=== PATIENT | male | born 1965 | race Two or more races ===

== ENCOUNTER 2017-10-17 14:10 | Outpatient (CLI) | payer OTHER | END 2017-10-17 15:00 | disposition home or self-care (01) | LOC: MRI 14:10 | DX: G89.29 Other chronic pain (principal); G61.89 Other inflammatory polyneuropathies | CPT/HCPCS: 73221 ==

== ENCOUNTER 2017-10-17 14:25 | Outpatient (CLI) | payer OTHER | END 2017-10-17 15:00 | disposition home or self-care (01) | LOC: SONOGRAMA 14:25 | DX: G89.29 Other chronic pain (principal); G61.89 Other inflammatory polyneuropathies; G89.11 Acute pain due to trauma ==

== ENCOUNTER 2018-07-08 07:18 | Outpatient (CLI) | payer OTHER | END 2018-07-08 07:34 | disposition home or self-care (01) | LOC: NUCLEAR 07:18 | DX: I25.10 Atherosclerotic heart disease of native coronary artery without angina pectoris (principal) | CPT/HCPCS: 78452; 93017; A9500 ==

== ENCOUNTER 2018-08-13 09:06 | Outpatient (CLI) | payer OTHER | END 2018-08-13 09:22 | disposition home or self-care (01) | LOC: NUCLEAR 09:06 | DX: I20.0 Unstable angina (principal) | CPT/HCPCS: 78472; 78496; A9560 ==

== ENCOUNTER 2018-08-13 11:41 | Outpatient (CLI) | payer OTHER | END 2018-08-13 11:58 | disposition home or self-care (01) | LOC: LAB 11:41 | DX: N40.0 Benign prostatic hyperplasia without lower urinary tract symptoms (principal); R97.20 Elevated prostate specific antigen [PSA]; R31.9 Hematuria, unspecified ==

== ENCOUNTER 2018-08-19 17:42 | Outpatient (CLI) | payer OTHER | END 2018-08-19 17:45 | disposition home or self-care (01) | LOC: LAB 17:42 | DX: N40.0 Benign prostatic hyperplasia without lower urinary tract symptoms (principal); R97.20 Elevated prostate specific antigen [PSA]; R31.9 Hematuria, unspecified ==

== ENCOUNTER → 2021-01-10 | Outpatient (CLI) | payer OTHER | END | disposition home or self-care (01) | LOC: TOM 09:46 | PROVIDERS: ATTEND Student in an Organized Health Care Education/Training Program | DX: K57.30 Diverticulosis of large intestine without perforation or abscess without bleeding (principal) ==

== ENCOUNTER 2022-02-21 09:09 | Emergency (ER) | payer OTHER ==
[~2022-02-21] VITALS: Ht 200.7 cm; Wt 104.3 kg
[2022-02-21] MEDS ORDERED: LIPITOR20 MG PO (09:15)
[2022-02-21] MEDS ORDERED: MEDROLPACK PO (13:36)
[2022-02-21] MEDS ORDERED: NORFLEX100MG PO (13:36)
== END 2022-02-21 14:39 | disposition home or self-care (01) ==
LOC: ER 09:09
DX: M25.562 Pain in left knee (principal); E78.00 Pure hypercholesterolemia, unspecified

== ENCOUNTER 2022-02-27 12:50 | Outpatient (CLI) | payer OTHER ==
[~2022-02-27 12:50] MED LIST: LIPITOR20 MG PO; MEDROLPACK PO; NORFLEX100MG PO
== END 2022-02-27 12:58 | disposition home or self-care (01) ==
LOC: MRI 12:50
DX: S83.8X2A Sprain of other specified parts of left knee, initial encounter (principal)
CPT/HCPCS: 73718

== ENCOUNTER 2022-03-09 13:31 | Outpatient (CLI) | payer OTHER | END 2022-03-09 13:39 | disposition home or self-care (01) | LOC: TOM 13:31 | PROVIDERS: ATTEND Family Medicine | DX: J01.80 Other acute sinusitis (principal) ==

== ENCOUNTER 2024-07-21 06:05 | Day surgery (SDC) | payer OTHER ==
[2024-07-21] MEDS ORDERED: NALOXONE HCL 0.4 MG/ML AMPUL IV STA (08:11)
[2024-07-21] MEDS ORDERED: FLUMAZENIL 0.5 MG/5 ML ML IV STA (08:11)
[2024-07-21] MEDS ORDERED: MIDAZOLAM HCL 2 MG/2 ML VIAL IV ONE (08:15)
[2024-07-21] MEDS ORDERED: DIPHENHYDRAMINE HCL 50 MG/ML VIAL 1ML IV ONE (08:15)
[2024-07-21] MEDS ORDERED: fentaNYL CITRATE 50 MCG/ML AMPUL IV PUSH ONE (08:15)
== END 2024-07-21 09:50 | disposition home or self-care (01) ==
LOC: AMB-ENDOS 06:05
PROVIDERS: ATTEND Colon & Rectal Surgery
DX: K63.5 Polyp of colon (principal); K57.30 Diverticulosis of large intestine without perforation or abscess without bleeding; K58.9 Irritable bowel syndrome, unspecified; Z86.0100 Personal history of colon polyps, unspecified; I10 Essential (primary) hypertension; E11.9 Type 2 diabetes mellitus without complications